=== PATIENT | female | born 1990 | race Caucasian/White ===

== ENCOUNTER 2017-03-07 12:12 | Observation (INO) | payer MEDICAID, OTHER ==
[2017-03-07] VITALS (7 sets, daily range): BP systolic 98–123; BP diastolic 62–75; PULSE 73–86; RESP 18–24; TEMP 97.9–98.6; O2SAT 97–100
[~2017-03-07] VITALS: Ht 165.1 cm; Wt 70.5 kg
[~2017-03-07 12:12] MED LIST: CEPH500 PO; CEPH500C3 PO; FERR324T4 PO; IBUP600 PO; OXYC1SOL5 PO; PERI8.6T PO; PREN0.01 PO
[2017-03-07] MEDS ORDERED: DIAZ5 PO (12:26)
--- NOTE | 2017-03-07 12:52 | PD ---
HPI Chief Complaint: Laceration/Skin Injury Time Seen by Provider: 12:33 Travel History International Travel<30 days: No Contact w/Intl Traveler<30days: No Traveled to known affect area: No History of Present Illness HPI 26-year-old female presents to the emergency Department with complaint of a laceration to her left thumb from a knife while cutting cheese today. Reports occasional numbness and tingling, but denies at this time. Reports inability to flex the thumb. Has applied pressure to control bleeding. Denies anticoagulant therapy. Denies being up-to-date on tetanus vaccination. Has not taken any medications to alleviate her symptoms. No known aggravating or relieving factors. Has no other medical complaints. No modifying factors or associated signs and symptoms. PFSH Past Medical History Anxiety: Yes Diminished Hearing: No Immunizations Current: No ?: Not LMP: last month : 1 Past Surgical History Other Surgery: Yes (CYST REMOVED FROM FACE) Social History Alcohol Use: No Tobacco Use: Yes (half a pack ) Substance Use: No Allergies-Medications (Allergen,Severity, Reaction): Coded Allergies: No Known Allergies (Verified , 05/24/15) Reported Meds & Prescriptions Reported Meds & Active Scripts Active Reported Valium (Diazepam) 5 Mg Tab 5 Mg PO HS PRN Review of Systems Except as stated in HPI: all other systems reviewed are Neg Physical Exam Narrative GENERAL: Well-nourished, well-developed fever patient, in no acute distress SKIN: Warm and dry. Left thumb with approximately 2.5 cm laceration to the palmar aspect between the MCP and PIP joints; with full extension; unable to assess flexion possibly secondary to patient guarding; minimal opposition noted otherwise patient possibly guarding; range of motion of the thumb examination is therefore limited, otherwise, suspecting tendon laceration. HEAD: Atraumatic. Normocephalic. EYES: Pupils equal and round. No scleral icterus. No injection or drainage. ENT: Mucosa pink and moist. Airway patent. NECK: Trachea midline. CARDIOVASCULAR: Regular rate. RESPIRATORY: No accessory muscle use. GASTROINTESTINAL: Rounded. MUSCULOSKELETAL: No obvious deformities. No clubbing. No cyanosis. No edema. NEUROLOGICAL: Awake and alert. Oriented 3. No obvious cranial nerve deficits. Motor grossly within normal limits. Normal speech. PSYCHIATRIC: Appropriate mood and affect; insight and judgment normal. Data Data Last Documented VS Vital Signs Date Time Temp Pulse Resp B/P (MAP) Pulse Ox O2 Delivery O2 Flow Rate FiO2 03/07/17 15:24 98.5 78 18 98/62 (74) 100 Room Air Orders Orders Tetanus/Diphtheria Tox Adult (Tetanus/Di (03/07/17 13:00) Bupivacaine Pf 0.5% Inj (Marcaine Pf 0.5 (03/07/17 13:00) Lidocaine 1% Inj (50 Ml) (Xylocaine 1% I (03/07/17 13:00) Finger ([id number]) (03/07/17 ) Consult Hand Surgery (03/07/17 ) Basic Metabolic Panel (Bmp) (03/07/17 15:07) Complete Blood Count With Diff (03/07/17 15:07) Prothrombin Time / Inr (Pt) (03/07/17 15:07) Act Partial Throm Time (Ptt) (03/07/17 15:07) Iv Access Insert/Monitor (03/07/17 15:07) Ecg Monitoring (03/07/17 15:07) Oximetry (03/07/17 15:07) Sodium Chloride 0.9% Flush (Ns Flush) (03/07/17 15:15) NPO (03/07/17 15:09) Admit Order (Ed Use Only) (03/07/17 15:26) Labs Laboratory Tests Test 03/07/17 15:20 White Blood Count 6.9 TH/MM3 Red Blood Count 3.82 MIL/MM3 Hemoglobin 12.1 GM/DL Hematocrit 35.9 % Mean Corpuscular Volume 94.2 FL Mean Corpuscular Hemoglobin 31.7 PG Mean Corpuscular Hemoglobin Concent 33.7 % Red Cell Distribution Width 14.0 % Platelet Count 211 TH/MM3 Mean Platelet Volume 9.6 FL Neutrophils (%) (Auto) 59.1 % Lymphocytes (%) (Auto) 29.4 % Monocytes (%) (Auto) 7.7 % Eosinophils (%) (Auto) 3.2 % Basophils (%) (Auto) 0.6 % Neutrophils # (Auto) 4.1 TH/MM3 Lymphocytes # (Auto) 2.0 TH/MM3 Monocytes # (Auto) 0.5 TH/MM3 Eosinophils # (Auto) 0.2 TH/MM3 Basophils # (Auto) 0.0 TH/MM3 CBC Comment DIFF FINAL Differential Comment Prothrombin Time 10.7 SEC Prothromb Time International Ratio 1.0 RATIO Activated Partial Thromboplast Time 26.9 SEC Blood Urea Nitrogen 10 MG/DL Creatinine 0.60 MG/DL Random Glucose 94 MG/DL Calcium Level 8.6 MG/DL Sodium Level 140 MEQ/L Potassium Level 3.4 MEQ/L Chloride Level 110 MEQ/L Carbon Dioxide Level 22.1 MEQ/L Anion Gap 8 MEQ/L Estimat Glomerular Filtration Rate 120 ML/MIN MDM Medical Decision Making Medical Screen Exam Complete: Yes Emergency Medical Condition: Yes Medical Record Reviewed: Yes Differential Diagnosis Laceration, contusion, open fracture, abrasion Narrative Course 26-year-old female with left thumb laceration. Medical records reviewed and Tetanus is up to date from 2016. The patient does have decreased flexion of the finger and I cannot determine if this from guarding. See my procedure note for laceration repair. With laceration repair I did find the flexor tendon of the thumb is lacerated. I did close the laceration. 1329: Left thumb x-ray with no acute findings. 1419: Call out to hand surgeon for suspected flexor tendon laceration. 1450: I spoke with Dr. Robles, hand surgeon, and he is requesting the patient be admitted for bilateral repair of flexor tendon. He will come to bedside to evaluate the patient. Call placed to E[facility]I for patient admission. I spoke with ELLI Amaya and report was given for patient admission. Procedures Procedure Narrative LACERATION LOCATION: Palmar aspect of Left thumb in between the MCP and PIP joint LENGTH: 2.5 cm NUMBER OF STITCHES/CHAYA: 3 simple interrupted sutures REPAIR: The area of the laceration was prepped with Betadine and sterilely draped. The left thumb was digitally blocked with 1% lidocaine and 0.5% bupivacaine. The wound was copiously irrigated and explored without evidence of foreign body or neurovascular injury; there is tendon laceration noted of the flexor tendon. The wound was closed using 4-0 Prolene. This was a single layer repair. A sterile dressing was applied. The patient was advised to keep the dressing clean and dry. Patient tolerated the procedure well. Physician Communication Physician Communication Dr. Robles, hand surgeon ; Dr. Mckinley, Diagnosis Primary Impression: Laceration of left thumb Qualified Codes: S61.012A - Laceration without foreign body of left thumb without damage to nail, initial encounter Admitting Information Admitting Physician Requests: Observation Remedios Toure [facility] Mar 07, 2017 12:52
[2017-03-07] MEDS ORDERED: BUPIVACAINE HCL PF 0.5% 10 ML VIAL INFIL ONE (13:00)
[2017-03-07] MEDS ORDERED: TETANUS/DIPHTHERIA TOXOID ADULT 0.5 ML VIAL IM ONE (13:00)
[2017-03-07] MEDS ORDERED: LIDOCAINE HCL 1% 50 ML VIAL INFIL ONE (13:00)
--- NOTE | 2017-03-07 13:15 | RADRPT ---
EXAM DATE/TIME: 03/07/2017 13:00 [place] COMPARISON: No previous studies available for comparison. INDICATIONS : Cut thumb with a knife this morning. MEDICAL HISTORY : None. SURGICAL HISTORY : None. ENCOUNTER: Initial ACUITY: 1 day PAIN SCORE: 10/10 LOCATION: Left Hand, 1st digit FINDINGS: Examination of the first digit of the left hand demonstrates no evidence of fracture or dislocation. No radiopaque foreign bodies are seen. The soft tissues are intact. CONCLUSION: Unremarkable examination of the left first finger. Felix De La Rosa MD on March 07, 2017 at 13:13 Board Certified Radiologist. This report was verified electronically.
[2017-03-07] MEDS ORDERED: SODIUM CHLORIDE 0.9% FLUSH 10 ML FLUSH IV FLUSH PRN ×2 (15:15→15:45)
[2017-03-07] MEDS ORDERED: ONDANSETRON HCL 4 MG/2 ML VIAL IVP PRN (15:45)
[2017-03-07] MEDS ORDERED: ACETAMINOPHEN 325 MG TAB PO PRN (15:45)
[2017-03-07] MEDS ORDERED: NALOXONE HCL 0.4 MG/ML AMP IV PUSH PRN (15:45)
[2017-03-07] MEDS ORDERED: MAGNESIUM HYDROXIDE SUSP 30 ML CUP PO PRN (15:45)
[2017-03-07] MEDS ORDERED: MORPHINE SULFATE 2 MG/ML INJ IV PUSH PRN (16:00)
--- NOTE | 2017-03-07 16:00 | HHI.HP ---
[facility] Jerman Lawrence DO Admission Diagnosis LEFT THUMB LACERATION Diagnoses: Chief Complaint: Left thumb laceration Travel History International Travel<30 Days: No Contact w/Intl Traveler <30 Da: No Traveled to Known Affected Are: No History of Present Illness This is a 22-year-old female past history of anxiety/depression who presented with left thumb laceration. Patient stated that she was cutting cheese to make macaroni cheese and accidentally cut her left thumb. She stated that her thumb felt numb. She stated that she was unable to move her left thumb. Because of this she went to emergency department. In emergency department laceration was sutured in the ED. Hand surgeon consulted and per ED provider patient scheduled for surgery tonight. Patient admits to smoking tobacco about 560 today for the past 14 years. She denies any chest pain, shortness of breathing, palpitation, lightheadedness or dizziness. She stated that she can walk for many miles without any symptoms. Patient stated that she had surgery in the past and was put under general anesthesia without any compensations. All other review system reviewed and negative. Past Family Social History Past Medical History Anxiety/depression Past Surgical History Tubal ligation and 2 C-sections Reported Medications Valium (Diazepam) 5 Mg Tab 5 Mg PO HS PRN Allergies: Coded Allergies: No Known Allergies (Verified , 05/24/15) Active Ordered Medications Current Medications Tetanus/ Diphtheria Toxoids (Tetanus/ Diphtheria Tox Adult) 0.5 ml ONCE ONCE IM ; Start 03/07/17 at 13:00; Stop 03/07/17 at 13:01; Status DC Bupivacaine HCl (Marcaine Pf 0.5% Inj) 10 ml ONCE ONCE INFIL Last administered on 03/07/17 13:31; Start 03/07/17 at 13:00; Stop 03/07/17 at 13 :01; Status DC Lidocaine HCl (Xylocaine 1% Inj (50 ml)) 10 ml ONCE ONCE INFIL Last administered on 03/07/17 13:31; Start 03/07/17 at 13:00; Stop 03/07/17 at 13 :01; Status DC Sodium Chloride (NS Flush) 2 ml UNSCH PRN IV FLUSH FLUSH AFTER USING IV ACCESS ; Start 03/07/17 at 15:15 Sodium Chloride 1,000 ml @ 100 mls/hr Q10H IV ; Start 03/07/17 at 15:45; Status UNV Sodium Chloride (NS Flush) 2 ml UNSCH PRN IV FLUSH FLUSH AFTER USING IV ACCESS ; Start 03/07/17 at 15:45; Status UNV Sodium Chloride (NS Flush) 2 ml BID IV FLUSH ; Start 03/07/17 at 21:00; Status UNV Acetaminophen (Tylenol) 650 mg Q4H PRN PO TEMP > 100.4; Start 03/07/17 at 15: 45; Status UNV Ondansetron HCl (Zofran Inj) 4 mg Q6H PRN IVP NAUSEA OR VOMITING; Start at 15:45; Status UNV Naloxone HCl (Narcan Inj) 0.4 mg UNSCH PRN IV PUSH SEE LABEL COMMENTS; Start 03/07/17 at 15:45; Status UNV Magnesium Hydroxide (Milk Of Magnesia Liq) 30 ml Q12H PRN PO Mild constipation ; Start 03/07/17 at 15:45; Status UNV Morphine Sulfate (Morphine Inj) 2 mg Q4H PRN IV PUSH pain 4-10; Start at 16:00; Status UNV Family History Mother had a history of lung cancer. Social History Patient lives with her [id number] along with her and kids. Smokes 5 cigars a day for 14 years. Denies any alcohol illicit drug use. Physical Exam Vital Signs Vital Signs Date Time Temp Pulse Resp B/P (MAP) Pulse Ox O2 Delivery O2 Flow Rate FiO2 03/07/17 15:24 98.5 78 18 98/62 (74) 100 Room Air 03/07/17 15:23 100 Room Air 03/07/17 12:14 98.6 86 20 123/63 (83) 100 Room Air Physical Exam GENERAL: This is a well-nourished, well-developed patient, in no apparent distress. SKIN: No rashes, ecchymoses or lesions. Cool and dry. HEAD: Atraumatic. Normocephalic. No temporal or scalp tenderness. EYES: Pupils equal round and reactive. Extraocular motions intact. No scleral icterus. No injection or drainage. ENT: Nose without bleeding, purulent drainage or septal hematoma. Throat without erythema, tonsillar hypertrophy or exudate. Uvula midline. Airway patent. NECK: Trachea midline. No JVD or lymphadenopathy. Supple, nontender, no meningeal signs. CARDIOVASCULAR: Regular rate and rhythm without murmurs, gallops, or rubs. RESPIRATORY: Clear to auscultation. Breath sounds equal bilaterally. No wheezes , rales, or rhonchi. GASTROINTESTINAL: Abdomen soft, non-tender, nondistended. No hepato-splenomegaly , or palpable masses. No guarding. MUSCULOSKELETAL: left thumb suture intact. Numbness with palpation. no Range of motion of 1sleft t PIP. Full range of motion with MCP of the first left digit. No calf tenderness. Negative Homans sign bilaterally. NEUROLOGICAL: Awake and alert. Cranial nerves II through XII intact. Motor and sensory grossly within normal limits. Five out of 5 muscle strength in all muscle groups. Normal speech. Imaging Last Impressions Finger X-Ray 03/07/17 0000 Signed Impressions: Service Date/Time: Tuesday, March 07, 2017 13:00 - CONCLUSION: Unremarkable examination of the left first finger. MD Tomeka Sterling VTE Risk Assessment Caprini VTE Risk Assessment: No/Low Risk (score <= 1) Caprini Risk Assessment Model Point Value = 1 Point Value = 2 Point Value = 3 Point Value = 5 Age 41-60 Minor surgery BMI > 25 kg/m2 Swollen legs Varicose veins or History of unexplained or recurrent spontaneous Oral contraceptives or hormone replacement Sepsis (< 1 month) Serious lung disease, including pneumonia (< 1 month) Abnormal pulmonary function Acute myocardial infarction Congestive heart failure (< 1 month) History of inflammatory bowel disease Medical patient at bed rest Age 61-74 Arthroscopic surgery Major open surgery (> 45 min) Laparoscopic surgery (> 45 min) Malignancy Confined to bed (> 72 hours) Immobilizing plaster cast Central venous access Age >= 75 History of VTE Family history of VTE Factor V Leiden Prothrombin [id number] Lupus anticoagulant Anticardiolipin antibodies Elevated serum homocysteine Heparin-induced thrombocytopenia Other congenital or acquired thrombophilia Stroke (< 1 month) Elective arthroplasty Hip, pelvis, or leg fracture Acute spinal cord injury (< 1 month) Prophylaxis Regimen Total Risk Factor Score Risk Level Prophylaxis Regimen 0-1 Low Early ambulation 2 Moderate Order ONE of the following: *Sequential Compression Device (SCD) *Heparin 5000 units SQ BID 3-4 Higher Order ONE of the following medications: *Heparin 5000 units SQ TID *Enoxaparin/Lovenox 40 mg SQ daily (WT < 150 kg, CrCl > 30 mL/min) *Enoxaparin/Lovenox 30 mg SQ daily (WT < 150 kg, CrCl > 10-29 mL/min) *Enoxaparin/Lovenox 30 mg SQ BID (WT < 150 kg, CrCl > 30 mL/min) AND/OR *Sequential Compression Device (SCD) 5 or more Highest Order ONE of the following medications: *Heparin 5000 units SQ TID (Preferred with Epidurals) *Enoxaparin/Lovenox 40 mg SQ daily (WT < 150 kg, CrCl > 30 mL/min) *Enoxaparin/Lovenox 30 mg SQ daily (WT < 150 kg, CrCl > 10-29 mL/min) *Enoxaparin/Lovenox 30 mg SQ BID (WT < 150 kg, CrCl > 30 mL/min) AND *Sequential Compression Device (SCD) Assessment and Plan Assessment and Plan 26-year-old female with history of anxiety/depression who accidentally cut her left thumb Left thumb laceration -X-rays negative. No range of motion of the PIP. She is being evaluated by hand surgeon for possible surgery tonight. -We'll keep patient nothing by mouth. Put on IV fluids. Give supportive care. DVT prophylaxis -Low risk SCDs. Code Status full code Discussed Condition With Patient and her [id number]. Possible discharge tomorrow. Selene Mckinley MD Mar 07, 2017 16:00
[2017-03-07 16:05] LABS: AUTOMATED NEUTROPHIL # 4.1 TH/MM3 (1.8-7.7); BASOPHIL % 0.6 % (0.0-2.0); EOSINOPHIL # 0.2 TH/MM3 (0-0.4); EOSINOPHIL % 3.2 % (0.0-4.0); HEMATOCRIT 35.9 % (35.0-46.0); HEMO FLAGS DIFF FINAL; LYMPH % 29.4 % (9.0-44.0); MEAN CELL VOLUME 94.2 FL (80.0-100.0); MEAN CORPUSCULAR HEMOGLOBIN 31.7 PG (27.0-34.0); MEAN CORPUSCULAR HGB CONC 33.7 % (32.0-36.0); MONO % 7.7 % (0.0-8.0); NEUT % 59.1 % (16.0-70.0); PLATELET COUNT 211 TH/MM3 (150-450); RED BLOOD COUNT 3.82 MIL/MM3 (4.00-5.30); WHITE BLOOD COUNT 6.9 TH/MM3 (4.0-11.0)
[2017-03-07 16:09] LABS: PROTHROMBIN TIME - PATIENT 10.7 SEC (9.8-11.6)
[2017-03-07 16:11] LABS: APTT (PATIENT) 26.9 SEC (24.3-30.1)
[2017-03-07 16:32] LABS: BICARBONATE 22.1 MEQ/L (21.0-32.0); POTASSIUM 3.4 MEQ/L (3.5-5.1)
[2017-03-07] MEDS ORDERED: SODIUM CHLOR 0.9% 1000 ML INJ 1,000 ML IV SCH (17:00)
[2017-03-07] MEDS: SODIUM CHLORIDE 0.9% FLUSH 10 ML FLUSH IV FLUSH SCH ×2 (20:10→21:00)
--- NOTE | 2017-03-07 22:12 | MB ---
cc: TWAN PERES MD DATE OF CONSULTATION 03/07/17 REASON FOR CONSULTATION Left thumb laceration. HISTORY OF PRESENT ILLNESS The patient is a 26-year-old left-hand dominant female who presented to the ED with complaint of laceration to the left thumb for the past several hours. The patient states she was cutting cheese with a knife and when she accidentally lacerated the left thumb. Complains of pain over the left thumb region. She also complains of inability to flex the thumb joint. She has complaints of numbness. The patient had a digital block prior to suturing of laceration. Denies any other injuries. PAST MEDICAL/SURGICAL HISTORY The past medical-surgical history are noted, nonsignificant. PHYSICAL EXAMINATION DIRECTED EXAMINATION: Examination of the left hand/thumb reveals sutured laceration over the volar aspect of the thumb between the IP and MP joint of the thumb measuring about 2 cm in a transverse fashion. She has intact capillary refill over the pulp. No active flexion of the thumb or IP joint noted. The patient has no sensation distal to the laceration and proximal to the laceration. She had a digital block by the ER. She had intact capillary refill. IMAGING STUDIES X-rays of the left thumb shows evidence of soft tissue defect. No bony injury. ASSESSMENT A 26-year-old female with laceration left thumb involvement of flexor tendon, questionable involvement of the distal nerve. PLAN Plan will be to keep the patient n.p.o., take the patient emergently for exploration and repair of flexor tendon, possible repair of distal nerve. The patient has been explained risk and benefits of the procedure. Twan Peres MD SE/ELKE /3:57 PM /10:09 PM ALIREZA
[2017-03-07] MEDS ORDERED: ACETAMINOPHEN/HYDROcodone 325 MG/7.5 MG TAB ONE (22:26)
[2017-03-07] MEDS ORDERED: ACETAMINOPHEN/HYDROcodone 325 MG/7.5 MG TAB PO ONE (22:30)
== END 2017-03-07 23:01 | disposition left against medical advice (07) ==
LOC: NEPD 12:12 → NEDA 15:28 → NEPFCDU 17:31
PROVIDERS: ADMIT Family Medicine; ATTEND Family Medicine
DX: S61.012A Laceration without foreign body of left thumb without damage to nail, initial encounter (principal); W26.0XXA Contact with knife, initial encounter; R20.0 Anesthesia of skin; R20.2 Paresthesia of skin; F41.9 Anxiety disorder, unspecified; Y93.G3 Activity, cooking and baking; F17.210 Nicotine dependence, cigarettes, uncomplicated; D64.9 Anemia, unspecified; E87.6 Hypokalemia; R79.89 Other specified abnormal findings of blood chemistry
CPT/HCPCS: 12001; 73140; 80048; 85025; 85610; 85730; 96361; 96374; 96375; 99285; G0378; J2270; J2405; J7030; 99211; G0463